=== PATIENT | female | born 1985 | race Two or more races ===

== ENCOUNTER 2017-03-17 15:40 | Emergency (ER) | payer MEDICAID, OTHER ==
[~2017-03-17] VITALS: Ht 160 cm; Wt 48.5 kg
[2017-03-17] MEDS ORDERED: NKM (15:46)
[2017-03-17 15:53] VITALS: BP 117/75
[2017-03-17] MEDS ORDERED: SILVADENE20 GM TP (16:15)
[2017-03-17 16:23] VITALS: BP 122/74
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
== END 2017-03-17 16:23 | disposition home or self-care (01) ==
LOC: EMR 16:06
DX: T21.02XA Burn of unspecified degree of abdominal wall, initial encounter (principal); T31.0 Burns involving less than 10% of body surface; X10.0XXA Contact with hot drinks, initial encounter; Y92.9 Unspecified place or not applicable
CPT/HCPCS: 99283; Z7502